=== PATIENT | female | born 1950 | race Caucasian/White ===

== ENCOUNTER 2017-10-08 19:52 | Emergency (ER) | payer SELFPAY ==
[~2017-10-08] VITALS: Ht 152.4 cm; Wt 72.6 kg
[2017-10-08 21:09] VITALS: BP 200/97
== END 2017-10-08 21:22 | disposition home or self-care (01) ==
LOC: ER 19:57
DX: M54.32 Sciatica, left side (principal); I10 Essential (primary) hypertension
CPT/HCPCS: A4606; Z7610